=== PATIENT | male | born 1960 | race Caucasian/White ===

== ENCOUNTER → 2017-02-03 | Outpatient (CLI) | payer SELFPAY ==
[~2017-02-03] MED LIST: ASPIR 8181 MG PO; CHANTIX1 MG PO; CRESTOR20 MG PO; HYDROCHLOROTHIA25 MG PO; ISOSORBIDE MONO30 MG PO; METOPROLOL TART25 MG PO; NITROSTAT 0.40.4 MG SL; PRINIVIL5 MG PO
== END ==
LOC: HEART 5 07:58
DX: R07.9 Chest pain, unspecified (principal); F17.210 Nicotine dependence, cigarettes, uncomplicated; I10 Essential (primary) hypertension; I51.9 Heart disease, unspecified; I34.8 Other nonrheumatic mitral valve disorders; I08.3 Combined rheumatic disorders of mitral, aortic and tricuspid valves
CPT/HCPCS: 78452; 93306; A9502; J2785